=== PATIENT | female | born 1995 | race Caucasian/White ===

== ENCOUNTER 2017-01-22 19:07 | Emergency (ER) | payer MEDICAID ==
[~2017-01-22] VITALS: Ht 162.6 cm; Wt 55.6 kg
[~2017-01-22 19:07] MED LIST: AMOXICILLIN500 MG PO; BACTRIM DS1 TAB PO; FERR SULFATE325 MG PO; IRON (FERROUS S50 MG PO; MOTRIN600 MG/TAB PO; NORCO1 TA1 PO; PRE-NATAL PO; STERAPRED DS10 MG PO; ZOFRAN ODT4 MG PO; [UNRECOGNIZED DRUG - OTHER] PO
[2017-01-22 19:29] VITALS: BP 121/69
== END 2017-01-22 21:15 | disposition left against medical advice (07) | DRG 951 ==
LOC: ED 19:07 → LWOBS 21:15
DX: Z91.19 Patient's noncompliance with other medical treatment and regimen (principal)

== ENCOUNTER 2017-09-24 09:08 | Emergency (ER) | payer MEDICAID ==
[~2017-09-24] VITALS: Ht 162.6 cm; Wt 60.0 kg
[2017-09-24 09:59] LABS: INFLUENZA A POSITIVE (NONE DETECT); INFLUENZA B NONE DETECTED (NONE DETECT)
[2017-09-24] MEDS ORDERED: TAM75CAP PO (10:08)
[2017-09-24] MEDS ORDERED: ZOFRAN ODT4 MG PO (10:08)
[2017-09-24 10:10] VITALS: BP 118/70
== END 2017-09-24 10:10 | disposition home or self-care (01) | DRG 153 ==
LOC: ED 09:08
PROVIDERS: Emergency Medicine
DX: J11.1 Influenza due to unidentified influenza virus with other respiratory manifestations (principal); M79.1 Myalgia; R11.10 Vomiting, unspecified; R19.7 Diarrhea, unspecified

== ENCOUNTER 2018-08-07 08:29 | Emergency (ER) | payer MEDICAID ==
[~2018-08-07] VITALS: Ht 162.6 cm; Wt 55.0 kg
[~2018-08-07 08:29] MED LIST changes: +TAM75CAP PO
[2018-08-07 09:14] LABS: HEMATOCRIT 40.1 % (37.0-47.0); HEMOGLOBIN 13.8 g/dl (12.0-16.0); IMMATURE GRANULOCYTES 0.4 % (0.0-5.0); MEAN CELL VOLUME 86.6 fL CALC (80.0-100.0); MEAN CORPUSCULAR HGB 29.8 pG CALC (26.0-32.0); MEAN CORPUSCULAR HGB CONC 34.4 g/L CALC (32.0-36.0); NEUT# 4.22 thou/uL (2.00-7.15); RED BLOOD COUNT 4.63 mill/uL (4.20-5.60); RED CELL DISTRI WIDTH 11.9 % (11.5-15.5)
[2018-08-07 09:34] LABS: ALBUMIN 4.5 g/dL (3.2-5.0); ALKALINE PHOSPHATASE 86 u/l (38-126); ANION GAP 18 (6-22 (CALC)); BILIRUBIN, TOTAL 0.3 mg/dL (0.0-1.4); BUN 11 mg/dL (7-17); BUN/CREATININE RATIO 20 (12-20 (CALC)); CARBON DIOXIDE 24 mmol/l (22-30); CHLORIDE 102 mmol/l (95-108); CREATININE 0.6 mg/dL (0.5-1.0); GFR > 60 ML/MIN (>=60 (CALC)); GFR FOR AFR.AMER. > 60 ML/MIN (>=60 (CALC)); POTASSIUM 3.5 mmol/l (3.5-5.1); SGOT/AST 27 u/l (14-36); SODIUM 141 mmol/l (137-146); TOTAL PROTEIN 7.9 g/dL (6.3-8.2)
[2018-08-07 10:18] LABS: URINE BILIRUBIN - DIPSTICK NEGATIVE (NEGATIVE); URINE BLOOD DIPSTICK NEGATIVE (NEGATIVE); URINE COLOR YELLOW; URINE GLUCOSE - DIPSTICK NEGATIVE (NEGATIVE); URINE KETONE NEGATIVE (NEGATIVE); URINE LEUK ESTERASE TRACE (NEGATIVE); URINE NITRITE - DIPSTICK NEGATIVE (Negative); URINE PROTEIN - DIPSTICK NEGATIVE (NEG-TRACE); URINE SPECIFIC GRAVITY 1.025; URINE UROBILINOGEN - DIPSTICK 0.2 E.U./dL (0.2)
[2018-08-07 10:19] LABS: URINE CLARITY SL CLOUDY
[2018-08-07 10:20] LABS: BARBITURATES NEGATIVE (NEGATIVE); COCAINE NEGATIVE (NEGATIVE); METHADONE NEGATIVE (NEGATIVE); OXCYCODONE NEGATIVE (NEGATIVE); TETRAHYDROCANNABIONOL NEGATIVE (NEGATIVE); TRICYLIC ANTIDEPRESSANTS NEGATIVE (NEGATIVE)
[2018-08-07] MEDS ORDERED: AUGMENTIN875TAB PO (11:01)
[2018-08-07] MEDS ORDERED: ULTRAM50 MG PO (11:01)
[2018-08-07] MEDS ORDERED: TORADOL PO (11:01)
[2018-08-07 11:39] VITALS: BP 117/75
[2018-08-07] MEDS ORDERED: FIORICET PO (20:25)
== END 2018-08-07 11:40 | disposition home or self-care (01) ==
LOC: ED 08:29
PROVIDERS: Emergency Medicine
DX: R51 Headache (principal); J32.9 Chronic sinusitis, unspecified

== ENCOUNTER 2018-08-07 18:01 | Emergency (ER) | payer MEDICAID ==
[~2018-08-07] VITALS: Ht 162.6 cm; Wt 57.0 kg
[~2018-08-07 18:01] MED LIST changes: +AUGMENTIN875TAB PO; +TORADOL PO; +ULTRAM50 MG PO
[2018-08-07] MEDS ORDERED: FIORICET PO (20:25)
[2018-08-07 20:33] VITALS: BP 121/69
== END 2018-08-07 20:30 | disposition home or self-care (01) ==
LOC: ED 18:01
DX: J32.9 Chronic sinusitis, unspecified (principal); R51 Headache; J34.89 Other specified disorders of nose and nasal sinuses

== ENCOUNTER 2018-11-03 12:02 | Emergency (ER) | payer OTHER ==
[~2018-11-03] VITALS: Ht 162.6 cm; Wt 56.8 kg
[~2018-11-03 12:02] MED LIST changes: +FIORICET PO
[2018-11-03 12:58] LABS: URINE BLOOD DIPSTICK LARGE (NEGATIVE); URINE COLOR YELLOW; URINE GLUCOSE - DIPSTICK NEGATIVE (NEGATIVE); URINE KETONE TRACE mg/dL (NEGATIVE); URINE NITRITE - DIPSTICK NEGATIVE (Negative); URINE PH 6.5 (4.5-8.0); URINE PROTEIN - DIPSTICK NEGATIVE (NEG-TRACE); URINE SPECIFIC GRAVITY 1.025
[2018-11-03 12:59] LABS: URINE LEUK ESTERASE SMALL (NEGATIVE)
[2018-11-03 13:00] LABS: URINE BILIRUBIN - DIPSTICK NEGATIVE (NEGATIVE)
[2018-11-03 13:08] LABS: URINE SQUAMOUS EPITHELIAL CELL FEW EPI/hpf (0-FEW)
[2018-11-03] MEDS ORDERED: KEFLEX500 M1 PO (13:29)
[2018-11-03] MEDS ORDERED: REGLAN10 MG PO (13:29)
[2018-11-03 13:40] VITALS: BP 112/70
== END 2018-11-03 13:40 | disposition home or self-care (01) ==
LOC: ED 12:02
PROVIDERS: Family Medicine
DX: N39.0 Urinary tract infection, site not specified (principal); R11.2 Nausea with vomiting, unspecified; R35.0 Frequency of micturition

== ENCOUNTER → 2018-12-25 | Outpatient (REF) | payer OTHER ==
[~2018-12-25] MED LIST changes: +KEFLEX500 M1 PO; +REGLAN10 MG PO
[2018-12-25 08:39] LABS: URINE BILIRUBIN - DIPSTICK NEGATIVE (NEGATIVE); URINE BLOOD DIPSTICK NEGATIVE (NEGATIVE); URINE COLOR YELLOW; URINE GLUCOSE - DIPSTICK NEGATIVE (NEGATIVE); URINE KETONE NEGATIVE (NEGATIVE); URINE LEUK ESTERASE NEGATIVE (Negative); URINE NITRITE - DIPSTICK NEGATIVE (Negative); URINE PROTEIN - DIPSTICK NEGATIVE (NEG-TRACE); URINE SPECIFIC GRAVITY >=1.030; URINE UROBILINOGEN - DIPSTICK 0.2 E.U./dL (0.2)
[2018-12-25 08:43] LABS: BARBITURATES NEGATIVE (NEGATIVE); COCAINE NEGATIVE (NEGATIVE); METHADONE NEGATIVE (NEGATIVE); OXCYCODONE NEGATIVE (NEGATIVE); TETRAHYDROCANNABIONOL NEGATIVE (NEGATIVE); TRICYLIC ANTIDEPRESSANTS NEGATIVE (NEGATIVE); URINE CLARITY CLEAR
[2018-12-25 08:50] LABS: HEMATOCRIT 36.9 % (37.0-47.0); HEMOGLOBIN 12.6 g/dl (12.0-16.0); IMMATURE GRANULOCYTES 0.3 % (0.0-5.0); MEAN CORPUSCULAR HGB 29.7 pG CALC (26.0-32.0); MEAN CORPUSCULAR HGB CONC 34.1 g/L CALC (32.0-36.0); NEUT# 4.51 thou/uL (2.00-7.15); RED BLOOD COUNT 4.24 mill/uL (4.20-5.60); RED CELL DISTRI WIDTH 11.9 % (11.5-15.5)
== END | disposition home or self-care (01) ==
LOC: LAB 07:55
PROVIDERS: ATTEND Obstetrics & Gynecology
DX: Z34.81 Encounter for supervision of other normal pregnancy, first trimester (principal)

== ENCOUNTER 2019-03-12 07:50 | Emergency (ER) | payer OTHER ==
[~2019-03-12] VITALS: Ht 162.6 cm; Wt 57.0 kg
[2019-03-12] MEDS ORDERED: OB COMPLET2 PO (08:03)
[2019-03-12] MEDS ORDERED: PREDNISONE50 MG PO (08:17)
[2019-03-12] MEDS ORDERED: BENADRYL 25MG C25 MG PO (08:17)
[2019-03-12 08:40] VITALS: BP 108/68
== END 2019-03-12 08:50 | disposition home or self-care (01) ==
LOC: ED 07:50
DX: L27.1 Localized skin eruption due to drugs and medicaments taken internally (principal); R22.0 Localized swelling, mass and lump, head; T43.595A Adverse effect of other antipsychotics and neuroleptics, initial encounter

== ENCOUNTER 2021-05-18 19:41 | Emergency (ER) | payer OTHER ==
[~2021-05-18] VITALS: Ht 162.6 cm; Wt 67.2 kg
[~2021-05-18 19:41] MED LIST changes: +BENADRYL 25MG C25 MG PO; +OB COMPLET2 PO; +PREDNISONE50 MG PO
[2021-05-18 20:36] VITALS: BP 126/78
== END 2021-05-18 21:40 | disposition left against medical advice (07) ==
LOC: ED 19:41
DX: M79.671 Pain in right foot (principal); R07.9 Chest pain, unspecified; F41.9 Anxiety disorder, unspecified; Z91.19 Patient's noncompliance with other medical treatment and regimen

== ENCOUNTER 2022-02-09 21:47 | Emergency (ER) | payer OTHER ==
[~2022-02-09] VITALS: Ht 162.6 cm; Wt 69.0 kg
[2022-02-10 00:18] LABS: HEMOGLOBIN 12.5 g/dl (12.0-16.0); IMMATURE GRANULOCYTES 0.2 % (0.0-5.0); MEAN CELL VOLUME 88.9 fL CALC (80.0-100.0); MEAN CORPUSCULAR HGB 30.9 pG CALC (26.0-32.0); MEAN CORPUSCULAR HGB CONC 34.7 g/dL CAL (32.0-36.0); NEUT# 5.54 thou/uL (2.00-7.15); RED BLOOD COUNT 4.05 mill/uL (4.20-5.60); RED CELL DISTRI WIDTH 11.6 % (11.5-15.5)
[2022-02-10 00:36] LABS: ALBUMIN 4.8 g/dL (3.2-5.0); ALKALINE PHOSPHATASE 90 u/l (38-126); ANION GAP 13 (6-22 (CALC)); BILIRUBIN, TOTAL 0.3 mg/dL (0.0-1.4); BUN 12 mg/dL (7-17); BUN/CREATININE RATIO 19 (12-20 (CALC)); CARBON DIOXIDE 27 mmol/l (22-30); CHLORIDE 103 mmol/l (95-108); CREATININE 0.6 mg/dL (0.5-1.0); GFR > 60 ML/MIN (>=60 (CALC)); GFR FOR AFR.AMER. > 60 ML/MIN (>=60 (CALC)); POTASSIUM 4.1 mmol/l (3.5-5.1); SGOT/AST 44 u/l (14-36); SODIUM 139 mmol/l (137-146); TOTAL PROTEIN 8.3 g/dL (6.3-8.2)
[2022-02-10 00:47] LABS: MYOGLOBIN 12 ng/mL (0 - 62)
[2022-02-10 01:21] LABS: URINE BILIRUBIN - DIPSTICK NEGATIVE (NEGATIVE); URINE BLOOD DIPSTICK TRACE-INTACT (NEGATIVE); URINE COLOR YELLOW; URINE GLUCOSE - DIPSTICK NEGATIVE (NEGATIVE); URINE KETONE NEGATIVE (NEGATIVE); URINE SPECIFIC GRAVITY 1.015; URINE UROBILINOGEN - DIPSTICK 0.2 E.U./dL (0.2)
[2022-02-10 01:32] LABS: URINE LEUK ESTERASE MODERATE (NEGATIVE); URINE NITRITE - DIPSTICK NEGATIVE (Negative); URINE PROTEIN - DIPSTICK NEGATIVE (NEG-TRACE)
[2022-02-10 01:35] LABS: URINE BACTERIA MODERATE hpf; URINE EPITHELIAL CELLS MODERATE EPI/hpf (0-FEW)
[2022-02-10 01:58] VITALS: BP 127/79
[2022-02-10] MEDS ORDERED: NAPROXEN500 MG PO (05:04)
== END 2022-02-10 01:59 | disposition home or self-care (01) ==
LOC: ED 21:47
PROVIDERS: Emergency Medicine
DX: R07.89 Other chest pain (principal); F41.9 Anxiety disorder, unspecified

== ENCOUNTER 2023-02-21 15:42 | Emergency (ER) | payer OTHER ==
[~2023-02-21 15:42] MED LIST changes: +NAPROXEN500 MG PO
== END 2023-02-21 16:22 | disposition left against medical advice (07) | DRG 951 ==
LOC: ED 15:42 → LWOBS 16:22
DX: Z53.21 Procedure and treatment not carried out due to patient leaving prior to being seen by health care provider (principal)